=== PATIENT | female | born 1965 | race Caucasian/White ===

== ENCOUNTER 2017-10-29 14:39 | Emergency (ER) | payer MEDICARE, OTHER ==
[2017-10-29 14:56] VITALS: BP 146/91
[2017-10-29] MEDS ORDERED: KETOROLAC TROMETHAMINE 60 MG/2 ML VIAL IM ONE (15:04)
[2017-10-29] MEDS ORDERED: ORPHENADRINE CITRATE 60 MG/2ML IM ONE (15:04)
[2017-10-29] MEDS ORDERED: NALBUPHINE HCL 10 MG/1 ML IM ONE (15:05)
--- NOTE | 2017-10-29 15:22 | ED Physician Documentation ---
General Adult - HISTORIAN Historian: patient - HPI Stated Complaint: Headache Chief Complaint: General Adult Onset: hours Timing: worse Further Comments: yes (52 year old female patient presents with complaint of left shoulder - trapezius and neck pain causing headache. Patient reports taking ultram at 10. Now reports taking baclofen; not listed on med list. Patient states she had night fraser and slept all day, does not want muscle relaxants. Currently on Mobic bid. Denies photophobia.) - ROS CONST: no problems EYES/ENT: none CVS/RESP: none GI/: nausea. denies: abdominal pain, problems urinating, vomiting, diarrhea MS/SKIN/LYMPH: neck pain, back pain. denies: calf pain, joint pain, leg swelling, rash, swollen glands, ankle swelling NEURO/PSYCH: denies: headache, fainting, dizziness, tingling, numbness, difficulty walking, difficulty with speech, anxiety, depression, other - PAST HX Past History: other (neuropathy; chronic pain syndrome; hypothyroidism) Allergies/Adverse Reactions: Allergies Allergy/AdvReac Type Severity Reaction Status Date / Time ciprofloxacin Allergy Verified 10/29/17 14:56 codeine Allergy Verified 10/29/17 14:56 erythromycin base Allergy Verified 10/29/17 14:56 hydrocodone Allergy Verified 10/29/17 14:56 Home Medications: Ambulatory Orders Medication Instructions Recorded Estradiol [Estrace] 1 tab PO DAILY 10/29/17 Gabapentin [Neurontin] 2 tab PO TID 10/29/17 Levothyroxine Sodium [Synthroid] 75 mcg PO DAILY 10/29/17 Meloxicam [Mobic] 2 tab PO DAILY 10/29/17 - SOCIAL HX Smoking History: cigarettes - FAMILY HX Family History: No - VITAL SIGNS Vital Signs: Vital Signs Temp Pulse Resp BP Pulse Ox 97.3 F L 98 H 16 146/91 99 10/29/17 14:45 10/29/17 14:45 10/29/17 14:45 10/29/17 14:45 10/29/17 14:45 - REVIEWED ASSESSMENTS Nursing Assessment Reviewed: Yes Vitals Reviewed: Yes Progress - Progress Progress: Patient reports adverse reaction to baclofen. no grimacing or c/o pain with flexion, extension or rotation of neck Patient on neurotin, meloxicam and ultram. Will give 1 time dose of toradol and nubain. Instructed to follow up with PCP if pain continued. Use tylenol and ice ED Results Lab/Radiology - Orders Orders: ED Orders Category Date Time Status Ketorolac Tromethamine [Toradol] Med 10/29/17 15:04 Discontinued 60 mg IM NOW ONE Nalbuphine HCl [Nubain] Med 10/29/17 15:05 Discontinued 10 mg IM NOW ONE Orphenadrine Citrate [Norflex] Med 10/29/17 15:04 Discontinued 60 mg IM NOW ONE General Adult Physical Exam - PHYSICAL EXAM GENERAL APPEARANCE: [id number] N NECK: normal inspection, other (left lateral neck pain; left shoulder and trapezius pain) RESPIRATORY: no resp distress, chest non-tender, breath sounds normal CVS: reg rate & rhythm, heart sounds normal, equal pulses, no murmur, no gallop , PMI nml, no JVD, no friction rub, 24 BACK: normal inspection, no CVA tenderness SKIN: normal color, warm/dry, NR, INT, PAL, DR EXTREMITIES: non-tender, normal range of motion, no evidence of injury, no edema , J, [employer]IVE NEURO: oriented X3, CN's nml as tested, motor nml, sensation nml, mood/affect nml Discharge Clincal Impression: Muscle spasm Headache Qualifiers: Headache type: tension-type Headache chronicity pattern: acute headache Intractability: not intractable Qualified Code(s): G44.209 - Tension-type headache, unspecified, not intractable Referrals: Wendy Espinal, PRN [Primary Care Provider] - 2 Days Additional Instructions: Ice Rest Tylenol every 4 hours as needed for pain - do not take more than 4G in 24 hours. Follow up with Dedra Espinal tomorrow if no improvement. Condition: Stable Disposition: 01 HOME, SELF-CARE Decision to Admit: NO Decision Time: 15:21
== END 2017-10-29 15:26 | disposition home or self-care (01) ==
LOC: ED 14:39
DX: G44.209 Tension-type headache, unspecified, not intractable (principal); M62.838 Other muscle spasm
CPT/HCPCS: J1885; J2300; 96372; 99283

== ENCOUNTER 2018-07-23 12:07 | Outpatient (CLI) | payer MEDICARE, OTHER | END 2018-07-23 12:15 | LOC: LAB 12:07 | PROVIDERS: ATTEND Nurse Practitioner Family | DX: E03.4 Atrophy of thyroid (acquired) (principal) | CPT/HCPCS: 36415; 84439; 84443 ==

== ENCOUNTER 2019-05-11 11:14 | Outpatient (CLI) | payer MEDICARE, OTHER ==
[2019-05-11 12:47] LABS: BASOPHILS % 0.4 % (0.0-1.5); NEUTROPHILS # 2.7 # k/uL (1.4-7.7)
[2019-05-11 13:24] LABS: eGFR (Non-African) > 60
[2019-05-11 13:26] LABS: HDL 75 mg/dL (>40); TSH < 0.010 mIU/l (0.465-4.685)
[2019-05-11 13:39] LABS: A1C 5.2 % (<5.7)
== END 2019-05-11 11:19 ==
LOC: LAB 11:14
PROVIDERS: ATTEND Nurse Practitioner Family
DX: Z13.21 Encounter for screening for nutritional disorder (principal); E78.2 Mixed hyperlipidemia; E55.9 Vitamin D deficiency, unspecified; E53.9 Vitamin B deficiency, unspecified; Z79.899 Other long term (current) drug therapy
CPT/HCPCS: 36415; 80053; 80061; 82306; 82607; 82728; 83036; 83090; 83516; 83921; 84165; 84425; 84439; 84443; 84446; 85025; 85651; 86038; 86140; 86255; 86334; 86431; 86618; 86757; 86780; 87798